=== PATIENT | male | born 1975 | race Caucasian/White ===

== ENCOUNTER 2019-02-25 13:58 | Observation (INO) | payer SELFPAY ==
[~2019-02-25] VITALS: Ht 175.3 cm; Wt 74.8 kg
[2019-02-25] MEDS ORDERED: GLUCAGON FOR INJ 1 MG VIAL IV ONE (14:15)
[2019-02-25] MEDS ORDERED: SODIUM CHLORIDE 0.9% 1000ML 1,000 ML IV STA (14:18)
[2019-02-25] MEDS ORDERED: GLUCAGON FOR INJ 1 MG VIAL IV NR ×2 (14:30→16:30)
[2019-02-25] MEDS: LORAZEPAM INJ 2 MG/ML VIAL IV NR ×2 (15:15→17:16)
--- NOTE | 2019-02-25 15:21 | Diagnostic Imaging Report ---
A single frontal view of the chest. HISTORY: Choking on hamburger, Query esophageal foreign body COMPARISON: None available. DISCUSSION: Portable technique, limits sensitivity of the exam. Tubes/Lines: None Lungs and pleura: The lungs are well inflated. No evidence of a consolidative pneumonia or pulmonary alveolar edema. No definite pleural effusion or pneumothorax is identified. Heart and mediastinum: The cardiomediastinal silhouette appears unremarkable. Bones and soft tissues: Left convex curvature of the upper thoracic spine. Partially visualized metallic cervical spine anterior fixation hardware. IMPRESSION: No acute radiographic abnormality. Please note, it is unlikely that pieces of hamburger would be visible on radiographs. If symptoms persist, consider gastroenterology consultation to discuss if follow-up direct visualization/endoscopy is warranted. Signed by: Dr. Jose Carlos Avalos D.O., M.M.M. on 02/25/2019 3:18 PM
[2019-02-25 16:08] LABS: BASOPHILS # (AUTO) 0.1 (0.0-0.1); BASOPHILS % 0.8 % (0.0-1.0); EOSINOPHILS % 6.2 % (0.0-6.0); HEMOGLOBIN 13.4 g/dL (14.0-18.0); LYMPHOCYTES # (AUTO) 2.4 (1.0-3.2); LYMPHOCYTES % 15.2 % (18.0-39.1); MEAN CORPUSCULAR HEMOGLOBIN 28.7 pg (28-32); MEAN CORPUSCULAR HGB CONC 33.5 g/dL (31-35); MEAN CORPUSCULAR VOLUME 85.7 fL (81-99); MONOCYTES # (AUTO) 0.5 (0.2-0.8); MONOCYTES % 3.4 % (4.4-11.3); NEUTROPHILS # (AUTO) 11.7 (2.1-6.9); PLATELET COUNT 373 x10e3/uL (140-360); RED BLOOD COUNT 4.67 x10e6/uL (4.3-5.7)
[2019-02-25 16:14] LABS: INR 0.93
[2019-02-25 16:24] LABS: ALANINE AMINOTRANSFERASE 17 IU/L (0-55); ALBUMIN 4.3 g/dL (3.5-5.0); ALBUMIN/GLOBULIN RATIO 1.4 (0.8-2.0); ALKALINE PHOSPHATASE 75 IU/L (40-150); ANION GAP 11.9 mmol/L (8-16); BLOOD UREA NITROGEN 18 mg/dL (7-26); BUN/CREATININE RATIO 20 (6-25); CALCIUM 8.9 mg/dL (8.4-10.2); CARBON DIOXIDE 24 mmol/L (22-29); CHLORIDE 111 mmol/L (98-107); CREATINE KINASE 106 IU/L (30-200); CREATININE, SERUM 0.91 mg/dL (0.72-1.25); EST GLOMERULAR FILTRATION RATE > 60 ML/MIN (60-); GLUCOSE 76 mg/dL (74-118); POTASSIUM 3.9 mmol/L (3.5-5.1); SODIUM 143 mmol/L (136-145)
[2019-02-25] MEDS ORDERED: DEXTROSE 5%/0.45% SOD CHL 1,000 ML IV ONE (16:30)
[2019-02-25] MEDS ORDERED: ONDANSETRON HCL INJ 2MG/ML 2ML 2 MG/ML VIAL IV PRN (16:30)
--- OUTSIDE RECORDS SUMMARY | 2019-02-25 16:57 | XMS REPORT ---
Author Author [facility] Address Unknown Phone Unavailable Care Team Providers Care Health Policy Nurse Name Role Phone Denisa HYMAN Unavailable Unavailable Problems This patient has no known problems. Allergies, Adverse Reactions, Alerts This patient has no known allergies or adverse reactions. Medications This patient has no known medications. Results Test Description Test Time Test Comments Text Results Atomic Results Result Comments CHEST SINGLE (PORTABLE) 2019-02-25 15:16:00 [place] [address] Patient Name: WILFRED CHEN MR #: [id number] : 1975 Age/Sex: 43/M Req #: [id number] Adm Physician: Ordered by: ALEXANDER HYMAN MD Report #: [id number] Location: ER Room/Bed: Procedure: [id number] DX/CHEST SINGLE (PORTABLE) Exam Date: 02/25/19 Exam Time: 1500 REPORT STATUS: Signed A single frontal view of the chest. HISTORY: [place] on hamburger, Query esophageal foreign body COMPARISON: None available. DISCUSSION: Portable technique, limits sensitivity of the exam. Tubes/Lines: None Lungs and pleura: The lungs are well inflated. No evidence of a consolidative pneumonia or pulmonary alveolar edema. No definite pleural effusion or pneumothorax is identified. Heart and mediastinum: The cardiomediastinal silhouette appears unremarkable. Bones and soft tissues: Left convex curvature of the upper thoracic spine. Partially visualized metallic cervical spine anterior fixation hardware. IMPRESSION: No acute radiographic abnormality. Please note, it is unlikely that pieces of hamburger would be visible on radiographs. If symptoms persist, consider gastroenterology consultation to discuss if follow-up direct visualization/endoscopy is warranted. Signed by: Dr. Scotty Avalos D.O., M.M.M. on 02/25/2019 3:18 PM Dictated By: SCOTTY AVALOS DO [id number] Transcribed By: CORTNEY on 02/25/19 1518 COPY TO: ALEXANDER HYMAN MD
[2019-02-25] MEDS ORDERED: LIDOCAINE HCL 2% LOCAL INJ 5 ML SDV VIAL INJ ONE (18:06)
[2019-02-25] MEDS ORDERED: ROCURONIUM BROMIDE 10 MG/ML 5ML VIAL ONE (18:06)
[2019-02-25] MEDS ORDERED: ONDANSETRON HCL INJ 2MG/ML 2ML 2 MG/ML VIAL ONE (18:06)
[2019-02-25] MEDS ORDERED: SUCCINYLCHOLINE 200 MG/10 ML SYR ONE (18:06)
--- NOTE | 2019-02-25 18:11 | NUR ---
Received patient from ER, chocking and history of esophageal stricture, NPO at the moment, VSS, no c/o pains, Dr. Ac will complete EGD tonight if schedule permits, call light within reach, ambulatory, will monitor.
[2019-02-25 18:15] VITALS: BP 130/90
--- NOTE | 2019-02-25 18:36 | NUR ---
Patient vomiting clear liquids about 300cc, medicated with Zofran as ordered, will monitor.
[2019-02-25] MEDS ORDERED: MIDAZOLAM HCL 2 MG/2 ML VIAL ONE (18:41)
[2019-02-25] MEDS ORDERED: FENTANYL CITRATE/PF 100MCG/2 ML INJ ONE (18:41)
--- NOTE | 2019-02-25 19:03 | NUR ---
Orders received for EGD. Consent signed and patient gowned in prep for procedure. Endo notified.
[2019-02-25 19:13] VITALS: BP 130/90
[2019-02-25 20:00] VITALS: BP 148/74
--- NOTE | 2019-02-25 20:09 | NUR ---
Report called to Arielle and patient transferred to room 207 with all personal belongings. at bedside. Addendum: 02/25/19 at 2013 by Braydon Tyler RN charted on wrong patient
--- NOTE | 2019-02-25 20:25 | Operative Report ---
DATE OF PROCEDURE: 02/25/2019 SURGEON: Abdulaziz Ac MD PROCEDURE: Esophagoscopy with removal of foreign body. INDICATIONS FOR PROCEDURE: Foreign body in esophagus. The patient unable to swallow own secretions. MEDICATIONS: The patient was done under general endotracheal anesthesia. Please see anesthesiologist's note. PROCEDURE IN DETAIL: With the patient in the supine position, after adequate induction of general endotracheal anesthesia, a flexible fiberoptic Olympus gastroscope was introduced into the esophagus under direct visualization without any difficulty. There were multiple concentric rings noted in the esophagus, which are compatible with eosinophilic esophagitis. The lumen was strictured and the scope could not be advanced beyond approximately mid esophagus. A piece of meat was noted, lodged in that area and it was suctioned and removed with the scope. The scope was reintroduced again into the esophagus and despite gentle persistent pressure, it could not be advanced beyond the aforementioned point. We flushed the esophagus with the water jet and the water went down, and did not well up in the esophagus indicating patency. The scope was then withdrawn. The patient tolerated the procedure well. IMPRESSION: Eosinophilic esophagitis with mid esophageal stricture. Scope could not be advanced any further beyond that point despite multiple attempts. A piece of meat that was lodged the aforementioned site was suctioned and removed with the scope. The patient will need esophageal dilatation over a wire under fluoroscopic guidance. The patient, however, declined to consent to any dilatation prior to the procedure. MD URVASHI Elkins/MODL /[id number] cc: Molina Collins MD
[2019-02-25 20:30] VITALS: BP 135/76
--- NOTE | 2019-02-25 21:40 | NUR ---
Patient states he is going to leave against medical advice. States he wants to go back to [place] and see his regular doctor. He has paperwork from Dr. Betsy Ac with results of EGD performed earlier. We discussed his full liquid diet and risk of choking on solid foods. Patient states understanding. IV removed and final vital signs taken. Departure time 4 through ER with a Coworker/friend providing transportation.
== END 2019-02-25 19:44 | disposition left against medical advice (07) ==
LOC: ER 13:58 → ERHOLD 16:54 → IMCU 17:58
PROVIDERS: ADMIT Internal Medicine; ATTEND Internal Medicine
DX: T18.128A Food in esophagus causing other injury, initial encounter (principal); F41.9 Anxiety disorder, unspecified; K21.9 Gastro-esophageal reflux disease without esophagitis; Z88.8 Allergy status to other drugs, medicaments and biological substances; K20.0 Eosinophilic esophagitis; K22.2 Esophageal obstruction
CPT/HCPCS: 36415; 43247; 71045; 80053; 82550; 82553; 84484; 85025; 85610; 85730; 93005; 99284; G0378; J1610; J2001; J2060; J2250; J2405; J7030; 43235; J3010